=== PATIENT | female | born 1990 | race Two or more races ===

== ENCOUNTER 2017-02-19 13:32 | Inpatient (IN) | payer BC ==
[~2017-02-19] VITALS: Ht 157.5 cm; Wt 72.6 kg
[2017-02-19 15:11] VITALS: BP 112/71
[2017-02-19] MEDS ORDERED: ONDANSETRON PF 4 MG/2 ML VIAL. IV PRN ×2 (17:00→17:45)
[2017-02-19] MEDS ORDERED: IV NORMAL SALINE 1000ML BAG 1,000 ML IV SCH (17:39)
[2017-02-19] MEDS: PIPERACILLIN/TAZOBACTAM 3.375 GM in IV NORMAL SALINE 50ML 50 ML IV SCH ×2 (17:40→23:57)
[2017-02-19] MEDS: MORPHINE SULFATE 2 MG/ML DISP.SYRIN. IV PRN ×3 (17:40→23:07)
[2017-02-19] MEDS ORDERED: oxyCODONE IR 5 MG TABLET PO PRN (17:45)
[2017-02-19] MEDS ORDERED: 0.9 % SODIUM CHLORIDE 10 ML DISP.SYRIN. IV PRN (17:45)
--- NOTE | 2017-02-19 18:37 | HP ---
ADMIT DATE: 02/19/2017 CHIEF COMPLAINT: Right upper quadrant pain. HISTORY OF PRESENT ILLNESS: The patient is a 26-year-old , who presented with a 5-day history of right upper quadrant pain. She relates that this started last Wednesday and was waxing and waning during the day, got worse and worse and now has had vomiting this morning, which finally prompted her to seek medical help. She relates pain is actually worse when she takes a deep breath. It is right under her ribs in the nipple line on the right. She denies any ongoing nausea, any diarrhea. She was able to eat 3 out of the past 5 days with decreased p.o. intake. In the Emergency Room at [facility], she was found with cholecystitis and therefore referred to [facility] for surgical evaluation. PAST MEDICAL HISTORY: Nil. FAMILY HISTORY: She denies any knowledge of abdominal issues, no other family members with cholecystitis. SOCIAL HISTORY: Lives with her roommate. No toxic habits. Works as a counselor in detention. ALLERGIES: No known drug allergies. MEDICATIONS: MAR reconciled with home meds. REVIEW OF SYSTEMS: Positive for significant pain, 10/10 currently in right upper quadrant. No other issues. PHYSICAL EXAMINATION: VITAL SIGNS: Show a blood pressure of 112/71, heart rate of 76, respiratory rate at 18. She is afebrile. GENERAL: This is a well-nourished 26-year-old , alert and oriented, in moderate distress. HEENT: Shows no scleral icterus. LUNGS: Clear. HEART: Regular rate and rhythm. ABDOMEN: Has positive bowel sounds, soft, mildly distended, moderate to severe tenderness to palpation, especially in the right upper quadrant. EXTREMITIES: Show no edema. SKIN: Warm, soft and dry. LABORATORY DATA: Reviewed from [facility]. ASSESSMENT AND PLAN: The patient is a 26-year-old woman with cholecystitis. Dr. Mahajan from surgery is aware of her admission. Plans are for surgery in the morning as she received Lovenox in the ER this morning at [facility]. In the meantime, I will try and keep her comfortable with narcotics, both IV morphine as well as p.o. oxycodone are available for her. Hopefully, she will be able to get some rest overnight. She will be placed on clear liquids until midnight, at which point, she will become n.p.o. PRISCILA HAILE MD DR: [facility] JOB#: [id number] / [id number] BELIA
[2017-02-19 19:00] VITALS: BP 110/66
[2017-02-19 20:49] LABS: BASO # 0.1 x10^3/uL (0.0-0.2); BASO % 1 % (0-3); EOS % 0 % (0-3); HEMATOCRIT 37.2 % (36.0-47.0); HEMOGLOBIN 12.5 g/dL (12.0-15.5); LYMPH % 18 % (24-48); MEAN CORPUSCULAR HEMOGLOBIN 30 pg (25-35); MEAN CORPUSCULAR HGB CONC 34 g/dL (31-37); MEAN CORPUSCULAR VOLUME 88 fL (79-100); MONO % 6 % (0-9); NEUT % 75 % (31-73); PLATELET COUNT 273 x10^3/uL (140-400); RED BLOOD COUNT 4.22 x10^6/uL (3.50-5.40); RED CELL DISTRIBUTION WIDTH 14.8 % (11.5-14.5)
[2017-02-19 20:58] LABS: INR 1.1 (0.8-1.1); PROTHROMBIN TIME PATIENT 13.3 SEC (11.7-14.0)
[2017-02-19 21:07] LABS: ALBUMIN 3.5 g/dL (3.4-5.0); ALBUMIN/GLOBULIN RATIO 0.9 (1.0-1.7); CALCIUM 8.7 mg/dL (8.5-10.1); CREATININE 0.6 mg/dL (0.6-1.0); POTASSIUM 3.7 mmol/L (3.5-5.1); TOTAL BILIRUBIN 0.7 mg/dL (0.2-1.0); TOTAL PROTEIN 7.6 g/dL (6.4-8.2)
[2017-02-19 22:45] VITALS: BP 100/58
[2017-02-20] VITALS (12 sets, daily range): BP systolic 86–115; BP diastolic 44–72
[2017-02-20] MEDS ORDERED: PIPERACILLIN/TAZOBACTAM 3.375 GM in IV DEXTROSE 5% 50 ML IV SCH (04:26)
[2017-02-20] MEDS: MORPHINE SULFATE 2 MG/ML DISP.SYRIN. IV PRN ×4 (04:35→12:32)
[2017-02-20 05:48] LABS: BASO % 0 % (0-3); EOS % 1 % (0-3); HEMATOCRIT 35.5 % (36.0-47.0); HEMOGLOBIN 12.1 g/dL (12.0-15.5); LYMPH # 2.9 x10^3/uL (1.0-4.8); LYMPH % 35 % (24-48); MEAN CORPUSCULAR HEMOGLOBIN 30 pg (25-35); MEAN CORPUSCULAR HGB CONC 34 g/dL (31-37); MEAN CORPUSCULAR VOLUME 87 fL (79-100); MONO % 7 % (0-9); NEUT % 56 % (31-73); PLATELET COUNT 249 x10^3/uL (140-400); RED BLOOD COUNT 4.08 x10^6/uL (3.50-5.40); RED CELL DISTRIBUTION WIDTH 14.5 % (11.5-14.5); WHITE BLOOD COUNT 8.2 x10^3/uL (4.0-11.0)
[2017-02-20] MEDS: PIPERACILLIN/TAZOBACTAM 3.375 GM in IV DEXTROSE 5% 50 ML IV SCH ×3 (05:52→18:12)
[2017-02-20] MEDS ORDERED: SURGICEL HEMOSTAT 4X8 EACH. ONE (08:06)
[2017-02-20] MEDS ORDERED: BUPIVAC MPF-EPI 0.5%-1:200000 30 ML VIAL. ONE (08:06)
[2017-02-20] MEDS ORDERED: IOHEXOL 300 MG/ML 50 ML VIAL. ONE (08:06)
[2017-02-20] MEDS ORDERED: HYDROmorphone 2 MG/ML VIAL IV ONE (09:00)
[2017-02-20] MEDS ORDERED: IV RINGERS,LACTATED 1000ML 1,000 ML IV SCH (09:54)
[2017-02-20] MEDS ORDERED: fentaNYL PF VIAL 100 MCG/2 ML VIAL IV PRN (10:00)
[2017-02-20] MEDS ORDERED: HYDROmorphone 2 MG/ML VIAL IV PRN (10:00)
[2017-02-20] MEDS ORDERED: PROCHLORPERAZINE 10 MG/2 ML VIAL. IV PRN (10:00)
[2017-02-20] MEDS ORDERED: LIDOCAINE 1% PF 2 ML VIAL. ID PRN (10:00)
[2017-02-20] MEDS ORDERED: ONDANSETRON PF 4 MG/2 ML VIAL. IV PRN (10:00)
[2017-02-20] MEDS ORDERED: ROCURONIUM 50 MG/5 ML VIAL. ONE (10:09)
[2017-02-20] MEDS ORDERED: fentaNYL PF VIAL 100 MCG/2 ML VIAL ONE ×2 (10:09→11:59)
[2017-02-20] MEDS ORDERED: ONDANSETRON PF 4 MG/2 ML VIAL. ONE (10:11)
[2017-02-20] MEDS ORDERED: DEXAMETHASONE SOD PHOS 20 MG/5 ML VIAL. ONE (10:11)
[2017-02-20] MEDS ORDERED: PROPOFOL 20 ML IV ONE (10:11)
[2017-02-20] MEDS ORDERED: DESFLURANE 31 TO 60 MINUTES IH ONE (10:11)
[2017-02-20] MEDS ORDERED: LIDOCAINE 2% PF Vial for OR 5 ML VIAL. ONE (10:11)
--- NOTE | 2017-02-20 10:17 | PDOC2 ---
CONSULT Date of Consult Date of Consult DATE: 02/20/17 TIME: 10:14 History of Present Illness Reason for Visit: The patient is a 26 year old female who reported to the ER with abdominal pain. The pain was located in the RUQ with associated nausea. Her evaluation was suggestive of cholecystitis. Past Medical History Past Medical History denies Past Surgical History Past Surgical History denies Social History No ALCOHOL: none Current Medications Current Medications Current Medications Morphine Sulfate 2 mg PRN Q2HR PRN IV PAIN Last administered on 02/20/17 08: 12; Start 02/19/17 at 17:00 Ondansetron HCl (Zofran) 4 mg PRN Q8HRS PRN IV NAUSEA/VOMITING; Start at 17:00 Piperacillin Sod/ Tazobactam Sod 3.375 gm/Sodium Chloride 50 ml @ 100 mls/hr Q6HRS IV Last administered on 02/19/17 23:57; Start 02/19/17 at 18:00; Stop 02/20/17 at 04:26; Status DC Sodium Chloride (Normal Saline Flush) 3 ml PRN DAILY PRN IV AFTER MEDS AND BLOOD DRAWS; Start 02/19/17 at 17:45 Sodium Chloride 1,000 ml @ 100 mls/hr Q10H IV Last administered on 02/20/17 08:39; Start 02/19/17 at 17:39; Stop 02/20/17 at 03:38; Status DC Ondansetron HCl (Zofran) 4 mg PRN Q6HRS PRN IV NAUSEA/VOMITING Last administered on 02/19/17 19:59; Start 02/19/17 at 17:45 Oxycodone HCl (Roxicodone) 5 mg PRN Q3HRS PRN PO BREAKTHROUGH PAIN Last administered on 02/19/17 18:30; Start 02/19/17 at 17:45 Piperacillin Sod/ Tazobactam Sod 3.375 gm/Dextrose 50 ml @ 100 mls/hr Q6HRS IV ; Start 02/20/17 at 04:26; Stop 02/20/17 at 05:32; Status DC Piperacillin Sod/ Tazobactam Sod 3.375 gm/Dextrose 50 ml @ 100 mls/hr Q6HRS IV Last administered on 02/20/17 05:52; Start 02/20/17 at 06:00 Hydromorphone HCl (Dilaudid) 1 mg 1X ONCE IV Last administered on 02/20/17t 09:19; Start 02/20/17 at 09:00; Stop 02/20/17 at 09:01; Status DC Iohexol (Omnipaque 300 Mg/ml) 50 ml STK-MED ONCE .ROUTE ; Start 02/20/17 at 08: 06; Stop 02/20/17 at 09:06; Status DC Bupivacaine HCl/ Epinephrine Bitart (Sensorcain-Mpf Epi 0.5%-1:[id number]) 30 ml STK -MED ONCE .ROUTE ; Start 02/20/17 at 08:06; Stop 02/20/17 at 09:07; Status DC Cellulose 1 each STK-MED ONCE .ROUTE ; Start 02/20/17 at 08:06; Stop 02/20/17 at 09:07; Status DC Ondansetron HCl (Zofran) 4 mg PRN Q6HRS PRN IV NAUSEA/VOMITING; Start at 10:00; Stop 02/21/17 at 09:59 Fentanyl Citrate (Fentanyl 2ml Vial) 25 mcg PRN Q5MIN PRN IV MILD PAIN; Start 02/20/17 at 10:00; Stop 02/21/17 at 09:59 Fentanyl Citrate (Fentanyl 2ml Vial) 50 mcg PRN Q5MIN PRN IV MODERATE PAIN; Start 02/20/17 at 10:00; Stop 02/21/17 at 09:59 Morphine Sulfate 1 mg PRN Q10MIN PRN IV SEVERE PAIN; Start 02/20/17 at 10:00; Stop 02/21/17 at 09:59 Ringer's Solution 1,000 ml @ 30 mls/hr Q24H IV ; Start 02/20/17 at 09:54; Stop 02/20/17 at 21:53 Lidocaine HCl (Xylocaine-Mpf 1% Vial) 2 ml 1X PRN PRN ID IV START; Start 02/20 at 10:00; Stop 02/21/17 at 09:59 Hydromorphone HCl (Dilaudid) 0.5 mg PRN Q10MIN PRN IV SEV PAIN, Second choice; Start 02/20/17 at 10:00; Stop 02/21/17 at 09:59 Prochlorperazine Edisylate (Compazine) 5 mg PACU PRN PRN IV NAUSEA, MRX1; Start 02/20/17 at 10:00; Stop 02/21/17 at 09:59 Fentanyl Citrate (Fentanyl 2ml Vial) 100 mcg STK-MED ONCE .ROUTE ; Start at 10:09; Stop 02/20/17 at 10:10; Status DC Rocuronium [place] (Zemuron) 50 mg STK-MED ONCE .ROUTE ; Start 02/20/17 at 10: 09; Stop 02/20/17 at 10:10; Status DC Desflurane (Suprane) 30 ml STK-MED ONCE IH ; Start 02/20/17 at 10:11; Stop at 10:12; Status DC Propofol 20 ml @ As Directed STK-MED ONCE IV ; Start 02/20/17 at 10:11; Stop 02/20/17 at 10:12; Status DC Dexamethasone Sodium Phosphate (Decadron) 20 mg STK-MED ONCE .ROUTE ; Start at 10:11; Stop 02/20/17 at 10:12; Status DC Lidocaine HCl (Lidocaine Pf 2% Vial) 5 ml STK-MED ONCE .ROUTE ; Start 02/20/17 at 10:11; Stop 02/20/17 at 10:12; Status DC Ondansetron HCl (Zofran) 4 mg STK-MED ONCE .ROUTE ; Start 02/20/17 at 10:11; Stop 02/20/17 at 10:12; Status DC Active Scripts Active Reported No Known Medications Prior To Admisstion (Info) Each 1 Each Allergies Allergies: Coded Allergies: peanut (Verified Allergy, Unknown, 02/19/17) ROS Gastrointestinal: Yes Nausea, Yes Abdominal Pain Physical Exam General: Alert, Oriented X3, Cooperative HEENT: Atraumatic Lungs: Clear to auscultation Heart: Regular rate Abdomen: Soft (tender RUQ) Extremities: No clubbing, No cyanosis Skin: No rashes, No breakdown Neuro: Normal gait, Normal speech Psych/Mental Status: Mental status NL MUSCULOSKELETAL: No joint tenderness, No deformity Vitals VITALS Vital Signs Date Time Temp Pulse Resp B/P (MAP) Pulse Ox O2 Delivery O2 Flow Rate FiO2 02/20/17 09:19 18 99 Room Air 02/20/17 07:00 98.1 59 103/63 (76) 98.1 Labs Labs Laboratory Tests Test 02/19/17 19:00 02/20/17 04:45 White Blood Count 11.0 x10^3/uL (4.0-11.0) 8.2 x10^3/uL (4.0-11.0) Red Blood Count 4.22 x10^6/uL (3.50-5.40) 4.08 x10^6/uL (3.50-5.40) Hemoglobin 12.5 g/dL (12.0-15.5) 12.1 g/dL (12.0-15.5) Hematocrit 37.2 % (36.0-47.0) 35.5 % (36.0-47.0) Mean Corpuscular Volume 88 fL (79-100) 87 fL (79-100) Mean Corpuscular Hemoglobin 30 pg (25-35) 30 pg (25-35) Mean Corpuscular Hemoglobin Concent 34 g/dL (31-37) 34 g/dL (31-37) Red Cell Distribution Width 14.8 % (11.5-14.5) 14.5 % (11.5-14.5) Platelet Count 273 x10^3/uL (140-400) 249 x10^3/uL (140-400) Neutrophils (%) (Auto) 75 % (31-73) 56 % (31-73) Lymphocytes (%) (Auto) 18 % (24-48) 35 % (24-48) Monocytes (%) (Auto) 6 % (0-9) 7 % (0-9) Eosinophils (%) (Auto) 0 % (0-3) 1 % (0-3) Basophils (%) (Auto) 1 % (0-3) 0 % (0-3) Neutrophils # (Auto) 8.3 x10^3uL (1.8-7.7) 4.6 x10^3uL (1.8-7.7) Lymphocytes # (Auto) 2.0 x10^3/uL (1.0-4.8) 2.9 x10^3/uL (1.0-4.8) Monocytes # (Auto) 0.6 x10^3/uL (0.0-1.1) 0.6 x10^3/uL (0.0-1.1) Eosinophils # (Auto) 0.0 x10^3/uL (0.0-0.7) 0.1 x10^3/uL (0.0-0.7) Basophils # (Auto) 0.1 x10^3/uL (0.0-0.2) 0.0 x10^3/uL (0.0-0.2) Prothrombin Time 13.3 SEC (11.7-14.0) Prothromb Time International Ratio 1.1 (0.8-1.1) Activated Partial Thromboplast Time 33 SEC (24-38) Sodium Level 138 mmol/L (136-145) Potassium Level 3.7 mmol/L (3.5-5.1) Chloride Level 103 mmol/L (98-107) Carbon Dioxide Level 25 mmol/L (21-32) Anion Gap 10 (6-14) Blood Urea Nitrogen 8 mg/dL (7-20) Creatinine 0.6 mg/dL (0.6-1.0) Estimated GFR (Cockcroft-Gault) 119.0 BUN/Creatinine Ratio 13 (6-20) Glucose Level 94 mg/dL (70-99) Calcium Level 8.7 mg/dL (8.5-10.1) Total Bilirubin 0.7 mg/dL (0.2-1.0) Aspartate Amino Transf (AST/SGOT) 17 U/L (15-37) Alanine Aminotransferase (ALT/SGPT) 33 U/L (14-59) Alkaline Phosphatase 64 U/L (46-116) Total Protein 7.6 g/dL (6.4-8.2) Albumin 3.5 g/dL (3.4-5.0) Albumin/Globulin Ratio 0.9 (1.0-1.7) Laboratory Tests Test 02/19/17 19:00 02/20/17 04:45 White Blood Count 11.0 x10^3/uL (4.0-11.0) 8.2 x10^3/uL (4.0-11.0) Red Blood Count 4.22 x10^6/uL (3.50-5.40) 4.08 x10^6/uL (3.50-5.40) Hemoglobin 12.5 g/dL (12.0-15.5) 12.1 g/dL (12.0-15.5) Hematocrit 37.2 % (36.0-47.0) 35.5 % (36.0-47.0) Mean Corpuscular Volume 88 fL (79-100) 87 fL (79-100) Mean Corpuscular Hemoglobin 30 pg (25-35) 30 pg (25-35) Mean Corpuscular Hemoglobin Concent 34 g/dL (31-37) 34 g/dL (31-37) Red Cell Distribution Width 14.8 % (11.5-14.5) 14.5 % (11.5-14.5) Platelet Count 273 x10^3/uL (140-400) 249 x10^3/uL (140-400) Neutrophils (%) (Auto) 75 % (31-73) 56 % (31-73) Lymphocytes (%) (Auto) 18 % (24-48) 35 % (24-48) Monocytes (%) (Auto) 6 % (0-9) 7 % (0-9) Eosinophils (%) (Auto) 0 % (0-3) 1 % (0-3) Basophils (%) (Auto) 1 % (0-3) 0 % (0-3) Neutrophils # (Auto) 8.3 x10^3uL (1.8-7.7) 4.6 x10^3uL (1.8-7.7) Lymphocytes # (Auto) 2.0 x10^3/uL (1.0-4.8) 2.9 x10^3/uL (1.0-4.8) Monocytes # (Auto) 0.6 x10^3/uL (0.0-1.1) 0.6 x10^3/uL (0.0-1.1) Eosinophils # (Auto) 0.0 x10^3/uL (0.0-0.7) 0.1 x10^3/uL (0.0-0.7) Basophils # (Auto) 0.1 x10^3/uL (0.0-0.2) 0.0 x10^3/uL (0.0-0.2) Prothrombin Time 13.3 SEC (11.7-14.0) Prothromb Time International Ratio 1.1 (0.8-1.1) Activated Partial Thromboplast Time 33 SEC (24-38) Sodium Level 138 mmol/L (136-145) Potassium Level 3.7 mmol/L (3.5-5.1) Chloride Level 103 mmol/L (98-107) Carbon Dioxide Level 25 mmol/L (21-32) Anion Gap 10 (6-14) Blood Urea Nitrogen 8 mg/dL (7-20) Creatinine 0.6 mg/dL (0.6-1.0) Estimated GFR (Cockcroft-Gault) 119.0 BUN/Creatinine Ratio 13 (6-20) Glucose Level 94 mg/dL (70-99) Calcium Level 8.7 mg/dL (8.5-10.1) Total Bilirubin 0.7 mg/dL (0.2-1.0) Aspartate Amino Transf (AST/SGOT) 17 U/L (15-37) Alanine Aminotransferase (ALT/SGPT) 33 U/L (14-59) Alkaline Phosphatase 64 U/L (46-116) Total Protein 7.6 g/dL (6.4-8.2) Albumin 3.5 g/dL (3.4-5.0) Albumin/Globulin Ratio 0.9 (1.0-1.7) Assessment/Plan Assessment/Plan Calculous cholecystitis, recommend lap yazmin. The details and risks of surgery were discussed with the patient. She understands and would like to proceed. MELANY SINGH MD Feb 20, 2017 10:17
[2017-02-20] MEDS ORDERED: ESMOLOL 100 MG/10 ML VIAL. IV ONE (10:44)
[2017-02-20] MEDS ORDERED: NEOSTIGMINE 10 MG/10 ML VIAL. ONE (10:49)
[2017-02-20] MEDS ORDERED: GLYCOPYRROLATE 1 MG/5 ML VIAL. ONE (10:50)
[2017-02-20] MEDS ORDERED: KETOROLAC 30 MG/ML INJ FOR OR. INJ ONE (11:07)
--- NOTE | 2017-02-20 11:17 | RAD ---
Intraoperative cholangiogram 02/20/2017 Clinical history: Laparoscopic cholecystectomy. Fluoroscopic assistance was provided during an intraoperative cholangiogram. The total fluoroscopic time is listed as 0.35 seconds. 2 digital spot radiographs of the right upper quadrant of the abdomen were obtained. These radiographs demonstrate contrast opacifying the cystic duct remnant, common hepatic duct, left and right hepatic ducts and their branches and the common bile duct. These ducts are normal in caliber. No filling defect is seen. Free spillage of contrast into the duodenum is noted. Impression: Negative study.
--- NOTE | 2017-02-20 11:47 | PDOC4 ---
Operative Note Operative Note Operative Note: Preoperative Diagnosis: Calculous cholecystitis Postoperative Diagnosis: Same Procedure: Laparoscopic cholecystectomy with intraoperative cholangiogram Surgeons: Keyshawn Anesthesia: GenIlana Estimated Blood Loss: 10 mL Specimen: Gallbladder to pathology Drains: None Complications: None Indications: The patient is a 26-year-old female who reported through the emergency department with right upper quadrant pain. Her evaluation appears consistent with calculus cholecystitis. Surgical treatment was offered by means of a laparoscopic cholecystectomy. The risks of surgery were discussed which include bleeding, infection, bile duct injury, bile leak, pain, the potential for additional surgeries or procedures. The patient understands and would like to proceed. Description: The patient was taken to the operating room and laid supine on the operating table. General anesthesia was performed. The abdomen was prepped with ChloraPrep and draped in a standard surgical fashion. A small infraumbilical incision was made with a scalpel. The Veress needle was then inserted and a pneumoperitoneum was then created. A 5 mm trocar was then inserted and the laparoscope was introduced. In the upper midabdomen a 5 mm trocar was inserted and in the right upper quadrant two 2.3 mm mini lap graspers were inserted. The gallbladder was retracted cephalad. The cystic duct was dissected free from surrounding tissues. One clip was placed on the duct near the gallbladder junction. An opening was made in the duct and a cholangiocatheter placed within and secured with a clip. Using contrast dye and fluoroscopy an intraoperative cholangiogram was performed that appeared unremarkable. The clip and catheter were then withdrawn. Three clips were placed on the cystic duct and it was divided. The cystic artery was then identified, dissected free, doubly clipped and divided as well. The gallbladder was then mobilized away from the liver with cautery. The umbilical 5 millimeter trocar was exchanged for an 11 millimeter trocar. The gallbladder was then placed in an endoscopic bag and extracted at the umbilical trocar site. The fascia there was closed with an 0 Vicryl suture. All blood and irrigation fluid was suctioned and hemostasis was good. The remaining ports were removed and the pneumoperitoneum was relieved. The skin incisions were injected with half percent Marcaine with epinephrine, and all were closed using 4-0 Monocryl suture. Steri-Strips and dressings were then applied. The patient tolerated the procedure well and was sent to the recovery room in stable condition. At the end of the case all counts were correct. MELANY SINGH MD Feb 20, 2017 11:46
[2017-02-20] MEDS ORDERED: oxyCODONE/APAP 5/325 1 TAB TABLET PO PRN (12:00)
[2017-02-20] MEDS: fentaNYL PF VIAL 100 MCG/2 ML VIAL IV PRN ×2 (12:02→12:13)
[2017-02-20] MEDS ORDERED: MORPHINE SULFATE 2 MG/ML DISP.SYRIN. ONE (12:20)
--- NOTE | 2017-02-20 14:40 | PDOC ---
PROGRESS NOTES Chief Complaint Chief Complaint acute abdominal pain acute cholecystitis. History of Present Illness History of Present Illness Dr. Mahajan performed surg this AM, in afternoon, still severe pain cont current ADAT, clear liquid now try PO pain meds, will give IV X1 now discussed with RN Vitals Vitals Vital Signs Date Time Temp Pulse Resp B/P (MAP) Pulse Ox O2 Delivery O2 Flow Rate FiO2 02/20/17 13:32 18 Nasal Cannula 2.0 02/20/17 12:19 97.0 55 99/62 100 97.0 Physical Exam General: Alert, Oriented X3, Cooperative Heart: Regular rate Lungs: Clear Abdomen: Soft (tender RUQ) Extremities: No clubbing, No cyanosis Skin: No rashes, No breakdown Labs LABS Laboratory Tests Test 02/19/17 19:00 02/20/17 04:45 White Blood Count 11.0 x10^3/uL (4.0-11.0) 8.2 x10^3/uL (4.0-11.0) Red Blood Count 4.22 x10^6/uL (3.50-5.40) 4.08 x10^6/uL (3.50-5.40) Hemoglobin 12.5 g/dL (12.0-15.5) 12.1 g/dL (12.0-15.5) Hematocrit 37.2 % (36.0-47.0) 35.5 % (36.0-47.0) Mean Corpuscular Volume 88 fL (79-100) 87 fL (79-100) Mean Corpuscular Hemoglobin 30 pg (25-35) 30 pg (25-35) Mean Corpuscular Hemoglobin Concent 34 g/dL (31-37) 34 g/dL (31-37) Red Cell Distribution Width 14.8 % (11.5-14.5) 14.5 % (11.5-14.5) Platelet Count 273 x10^3/uL (140-400) 249 x10^3/uL (140-400) Neutrophils (%) (Auto) 75 % (31-73) 56 % (31-73) Lymphocytes (%) (Auto) 18 % (24-48) 35 % (24-48) Monocytes (%) (Auto) 6 % (0-9) 7 % (0-9) Eosinophils (%) (Auto) 0 % (0-3) 1 % (0-3) Basophils (%) (Auto) 1 % (0-3) 0 % (0-3) Neutrophils # (Auto) 8.3 x10^3uL (1.8-7.7) 4.6 x10^3uL (1.8-7.7) Lymphocytes # (Auto) 2.0 x10^3/uL (1.0-4.8) 2.9 x10^3/uL (1.0-4.8) Monocytes # (Auto) 0.6 x10^3/uL (0.0-1.1) 0.6 x10^3/uL (0.0-1.1) Eosinophils # (Auto) 0.0 x10^3/uL (0.0-0.7) 0.1 x10^3/uL (0.0-0.7) Basophils # (Auto) 0.1 x10^3/uL (0.0-0.2) 0.0 x10^3/uL (0.0-0.2) Prothrombin Time 13.3 SEC (11.7-14.0) Prothromb Time International Ratio 1.1 (0.8-1.1) Activated Partial Thromboplast Time 33 SEC (24-38) Sodium Level 138 mmol/L (136-145) Potassium Level 3.7 mmol/L (3.5-5.1) Chloride Level 103 mmol/L (98-107) Carbon Dioxide Level 25 mmol/L (21-32) Anion Gap 10 (6-14) Blood Urea Nitrogen 8 mg/dL (7-20) Creatinine 0.6 mg/dL (0.6-1.0) Estimated GFR (Cockcroft-Gault) 119.0 BUN/Creatinine Ratio 13 (6-20) Glucose Level 94 mg/dL (70-99) Calcium Level 8.7 mg/dL (8.5-10.1) Total Bilirubin 0.7 mg/dL (0.2-1.0) Aspartate Amino Transf (AST/SGOT) 17 U/L (15-37) Alanine Aminotransferase (ALT/SGPT) 33 U/L (14-59) Alkaline Phosphatase 64 U/L (46-116) Total Protein 7.6 g/dL (6.4-8.2) Albumin 3.5 g/dL (3.4-5.0) Albumin/Globulin Ratio 0.9 (1.0-1.7) Review of Systems Review of Systems pain and nausea Comment Review of Relevant I have reviewed the following items martin (where applicable) has been applied. Labs Laboratory Tests Test 02/19/17 19:00 02/20/17 04:45 White Blood Count 11.0 x10^3/uL (4.0-11.0) 8.2 x10^3/uL (4.0-11.0) Red Blood Count 4.22 x10^6/uL (3.50-5.40) 4.08 x10^6/uL (3.50-5.40) Hemoglobin 12.5 g/dL (12.0-15.5) 12.1 g/dL (12.0-15.5) Hematocrit 37.2 % (36.0-47.0) 35.5 % (36.0-47.0) Mean Corpuscular Volume 88 fL (79-100) 87 fL (79-100) Mean Corpuscular Hemoglobin 30 pg (25-35) 30 pg (25-35) Mean Corpuscular Hemoglobin Concent 34 g/dL (31-37) 34 g/dL (31-37) Red Cell Distribution Width 14.8 % (11.5-14.5) 14.5 % (11.5-14.5) Platelet Count 273 x10^3/uL (140-400) 249 x10^3/uL (140-400) Neutrophils (%) (Auto) 75 % (31-73) 56 % (31-73) Lymphocytes (%) (Auto) 18 % (24-48) 35 % (24-48) Monocytes (%) (Auto) 6 % (0-9) 7 % (0-9) Eosinophils (%) (Auto) 0 % (0-3) 1 % (0-3) Basophils (%) (Auto) 1 % (0-3) 0 % (0-3) Neutrophils # (Auto) 8.3 x10^3uL (1.8-7.7) 4.6 x10^3uL (1.8-7.7) Lymphocytes # (Auto) 2.0 x10^3/uL (1.0-4.8) 2.9 x10^3/uL (1.0-4.8) Monocytes # (Auto) 0.6 x10^3/uL (0.0-1.1) 0.6 x10^3/uL (0.0-1.1) Eosinophils # (Auto) 0.0 x10^3/uL (0.0-0.7) 0.1 x10^3/uL (0.0-0.7) Basophils # (Auto) 0.1 x10^3/uL (0.0-0.2) 0.0 x10^3/uL (0.0-0.2) Prothrombin Time 13.3 SEC (11.7-14.0) Prothromb Time International Ratio 1.1 (0.8-1.1) Activated Partial Thromboplast Time 33 SEC (24-38) Sodium Level 138 mmol/L (136-145) Potassium Level 3.7 mmol/L (3.5-5.1) Chloride Level 103 mmol/L (98-107) Carbon Dioxide Level 25 mmol/L (21-32) Anion Gap 10 (6-14) Blood Urea Nitrogen 8 mg/dL (7-20) Creatinine 0.6 mg/dL (0.6-1.0) Estimated GFR (Cockcroft-Gault) 119.0 BUN/Creatinine Ratio 13 (6-20) Glucose Level 94 mg/dL (70-99) Calcium Level 8.7 mg/dL (8.5-10.1) Total Bilirubin 0.7 mg/dL (0.2-1.0) Aspartate Amino Transf (AST/SGOT) 17 U/L (15-37) Alanine Aminotransferase (ALT/SGPT) 33 U/L (14-59) Alkaline Phosphatase 64 U/L (46-116) Total Protein 7.6 g/dL (6.4-8.2) Albumin 3.5 g/dL (3.4-5.0) Albumin/Globulin Ratio 0.9 (1.0-1.7) Laboratory Tests Test 02/19/17 19:00 02/20/17 04:45 White Blood Count 11.0 x10^3/uL (4.0-11.0) 8.2 x10^3/uL (4.0-11.0) Red Blood Count 4.22 x10^6/uL (3.50-5.40) 4.08 x10^6/uL (3.50-5.40) Hemoglobin 12.5 g/dL (12.0-15.5) 12.1 g/dL (12.0-15.5) Hematocrit 37.2 % (36.0-47.0) 35.5 % (36.0-47.0) Mean Corpuscular Volume 88 fL (79-100) 87 fL (79-100) Mean Corpuscular Hemoglobin 30 pg (25-35) 30 pg (25-35) Mean Corpuscular Hemoglobin Concent 34 g/dL (31-37) 34 g/dL (31-37) Red Cell Distribution Width 14.8 % (11.5-14.5) 14.5 % (11.5-14.5) Platelet Count 273 x10^3/uL (140-400) 249 x10^3/uL (140-400) Neutrophils (%) (Auto) 75 % (31-73) 56 % (31-73) Lymphocytes (%) (Auto) 18 % (24-48) 35 % (24-48) Monocytes (%) (Auto) 6 % (0-9) 7 % (0-9) Eosinophils (%) (Auto) 0 % (0-3) 1 % (0-3) Basophils (%) (Auto) 1 % (0-3) 0 % (0-3) Neutrophils # (Auto) 8.3 x10^3uL (1.8-7.7) 4.6 x10^3uL (1.8-7.7) Lymphocytes # (Auto) 2.0 x10^3/uL (1.0-4.8) 2.9 x10^3/uL (1.0-4.8) Monocytes # (Auto) 0.6 x10^3/uL (0.0-1.1) 0.6 x10^3/uL (0.0-1.1) Eosinophils # (Auto) 0.0 x10^3/uL (0.0-0.7) 0.1 x10^3/uL (0.0-0.7) Basophils # (Auto) 0.1 x10^3/uL (0.0-0.2) 0.0 x10^3/uL (0.0-0.2) Prothrombin Time 13.3 SEC (11.7-14.0) Prothromb Time International Ratio 1.1 (0.8-1.1) Activated Partial Thromboplast Time 33 SEC (24-38) Sodium Level 138 mmol/L (136-145) Potassium Level 3.7 mmol/L (3.5-5.1) Chloride Level 103 mmol/L (98-107) Carbon Dioxide Level 25 mmol/L (21-32) Anion Gap 10 (6-14) Blood Urea Nitrogen 8 mg/dL (7-20) Creatinine 0.6 mg/dL (0.6-1.0) Estimated GFR (Cockcroft-Gault) 119.0 BUN/Creatinine Ratio 13 (6-20) Glucose Level 94 mg/dL (70-99) Calcium Level 8.7 mg/dL (8.5-10.1) Total Bilirubin 0.7 mg/dL (0.2-1.0) Aspartate Amino Transf (AST/SGOT) 17 U/L (15-37) Alanine Aminotransferase (ALT/SGPT) 33 U/L (14-59) Alkaline Phosphatase 64 U/L (46-116) Total Protein 7.6 g/dL (6.4-8.2) Albumin 3.5 g/dL (3.4-5.0) Albumin/Globulin Ratio 0.9 (1.0-1.7) Medications Current Medications Morphine Sulfate 2 mg PRN Q2HR PRN IV PAIN Last administered on 02/20/17 08: 12; Start 02/19/17 at 17:00; Stop 02/20/17 at 14:38; Status DC Ondansetron HCl (Zofran) 4 mg PRN Q8HRS PRN IV NAUSEA/VOMITING; Start at 17:00; Stop 02/20/17 at 11:24; Status DC Piperacillin Sod/ Tazobactam Sod 3.375 gm/Sodium Chloride 50 ml @ 100 mls/hr Q6HRS IV Last administered on 02/19/17 23:57; Start 02/19/17 at 18:00; Stop 02/20/17 at 04:26; Status DC Sodium Chloride (Normal Saline Flush) 3 ml PRN DAILY PRN IV AFTER MEDS AND BLOOD DRAWS; Start 02/19/17 at 17:45 Sodium Chloride 1,000 ml @ 100 mls/hr Q10H IV Last administered on 02/20/17 08:39; Start 02/19/17 at 17:39; Stop 02/20/17 at 03:38; Status DC Ondansetron HCl (Zofran) 4 mg PRN Q6HRS PRN IV NAUSEA/VOMITING Last administered on 02/19/17 19:59; Start 02/19/17 at 17:45 Oxycodone HCl (Roxicodone) 5 mg PRN Q3HRS PRN PO BREAKTHROUGH PAIN Last administered on 02/19/17 18:30; Start 02/19/17 at 17:45 Piperacillin Sod/ Tazobactam Sod 3.375 gm/Dextrose 50 ml @ 100 mls/hr Q6HRS IV ; Start 02/20/17 at 04:26; Stop 02/20/17 at 05:32; Status DC Piperacillin Sod/ Tazobactam Sod 3.375 gm/Dextrose 50 ml @ 100 mls/hr Q6HRS IV Last administered on 02/20/17 12:17; Start 02/20/17 at 06:00 Hydromorphone HCl (Dilaudid) 1 mg 1X ONCE IV Last administered on 02/20/17 09:19; Start 02/20/17 at 09:00; Stop 02/20/17 at 09:01; Status DC Iohexol (Omnipaque 300 Mg/ml) 50 ml STK-MED ONCE .ROUTE Last administered on 10:39; Start 02/20/17 at 08:06; Stop 02/20/17 at 09:06; Status DC Bupivacaine HCl/ Epinephrine Bitart (Sensorcain-Mpf Epi 0.5%-1:135029) 30 ml STK -MED ONCE .ROUTE Last administered on 02/20/17 10:39; Start 02/20/17 at 08: 06; Stop 02/20/17 at 09:07; Status DC Cellulose 1 each STK-MED ONCE .ROUTE ; Start 02/20/17 at 08:06; Stop 02/20/17 at 09:07; Status DC Ondansetron HCl (Zofran) 4 mg PRN Q6HRS PRN IV NAUSEA/VOMITING; Start at 10:00; Stop 02/21/17 at 09:59 Fentanyl Citrate (Fentanyl 2ml Vial) 25 mcg PRN Q5MIN PRN IV MILD PAIN; Start 02/20/17 at 10:00; Stop 02/21/17 at 09:59 Fentanyl Citrate (Fentanyl 2ml Vial) 50 mcg PRN Q5MIN PRN IV MODERATE PAIN Last administered on 02/20/17 12:13; Start 02/20/17 at 10:00; Stop 02/21/17 at 09:59 Morphine Sulfate 1 mg PRN Q10MIN PRN IV SEVERE PAIN Last administered on 12:32; Start 02/20/17 at 10:00; Stop 02/20/17 at 14:38; Status DC Ringer's Solution 1,000 ml @ 30 mls/hr Q24H IV ; Start 02/20/17 at 09:54; Stop 02/20/17 at 21:53 Lidocaine HCl (Xylocaine-Mpf 1% Vial) 2 ml 1X PRN PRN ID IV START; Start 02/20 at 10:00; Stop 02/21/17 at 09:59 Hydromorphone HCl (Dilaudid) 0.5 mg PRN Q10MIN PRN IV SEV PAIN, Second choice; Start 02/20/17 at 10:00; Stop 02/21/17 at 09:59 Prochlorperazine Edisylate (Compazine) 5 mg PACU PRN PRN IV NAUSEA, MRX1 Last administered on 02/20/17 11:50; Start 02/20/17 at 10:00; Stop 02/21/17 at 09 :59 Fentanyl Citrate (Fentanyl 2ml Vial) 100 mcg STK-MED ONCE .ROUTE ; Start at 10:09; Stop 02/20/17 at 10:10; Status DC Rocuronium [place] (Zemuron) 50 mg STK-MED ONCE .ROUTE ; Start 02/20/17 at 10: 09; Stop 02/20/17 at 10:10; Status DC Desflurane (Suprane) 30 ml STK-MED ONCE IH ; Start 02/20/17 at 10:11; Stop at 10:12; Status DC Propofol 20 ml @ As Directed STK-MED ONCE IV ; Start 02/20/17 at 10:11; Stop 02/20/17 at 10:12; Status DC Dexamethasone Sodium Phosphate (Decadron) 20 mg STK-MED ONCE .ROUTE ; Start at 10:11; Stop 02/20/17 at 10:12; Status DC Lidocaine HCl (Lidocaine Pf 2% Vial) 5 ml STK-MED ONCE .ROUTE ; Start 02/20/17 at 10:11; Stop 02/20/17 at 10:12; Status DC Ondansetron HCl (Zofran) 4 mg STK-MED ONCE .ROUTE ; Start 02/20/17 at 10:11; Stop 02/20/17 at 10:12; Status DC Esmolol HCl (Brevibloc) 100 mg STK-MED ONCE IV ; Start 02/20/17 at 10:44; Stop 02/20/17 at 10:45; Status DC Neostigmine Methylsulfate (Bloxiverz) 10 mg STK-MED ONCE .ROUTE ; Start at 10:49; Stop 02/20/17 at 10:50; Status DC Glycopyrrolate (Robinul) 1 mg STK-MED ONCE .ROUTE ; Start 02/20/17 at 10:50; Stop 02/20/17 at 10:51; Status DC Ketorolac Tromethamine (Toradol For Or Only) 30 mg STK-MED ONCE INJ ; Start at 11:07; Stop 02/20/17 at 11:08; Status DC Oxycodone/ Acetaminophen (Percocet 5/325) 1 tab PRN Q4HRS PRN PO MODERATE PAIN ; Start 02/20/17 at 12:00 Oxycodone/ Acetaminophen (Percocet 5/325) 2 tab PRN Q4HRS PRN PO SEVERE PAIN; Start 02/20/17 at 12:00 Fentanyl Citrate (Fentanyl 2ml Vial) 100 mcg STK-MED ONCE .ROUTE ; Start at 11:59; Stop 02/20/17 at 12:00; Status DC Morphine Sulfate 2 mg STK-MED ONCE .ROUTE ; Start 02/20/17 at 12:20; Stop at 12:21; Status DC Active Scripts Active Reported No Known Medications Prior To Admisstion (Info) Each 1 Each Vitals/I & O Vital Sign - Last 24 Hours 02/19/17 02/19/17 02/19/17 02/19/17 15:00 15:11 17:40 18:30 Temp 97.6 97.6 Pulse 76 Resp 18 18 B/P (MAP) 112/71 (85) Pulse Ox 99 O2 Delivery Room Air Room Air Room Air Room Air 02/19/17 02/19/17 02/19/17 02/19/17 19:00 19:30 19:50 19:54 Temp 98.4 98.4 Pulse 70 Resp 17 18 18 B/P (MAP) 110/66 (81) Pulse Ox 95 O2 Delivery Room Air Room Air Room Air Room Air 02/19/17 02/19/17 02/20/17 02/20/17 22:45 23:07 03:00 04:35 Temp 98.3 98.2 98.3 98.2 Pulse 64 56 Resp 16 18 16 18 B/P (MAP) 100/58 (72) 91/53 (66) Pulse Ox 98 99 O2 Delivery Room Air Room Air Room Air Room Air 02/20/17 02/20/17 02/20/17 02/20/17 07:00 07:50 08:12 09:19 Temp 98.1 98.1 Pulse 59 Resp 16 18 18 B/P (MAP) 103/63 (76) Pulse Ox 100 99 99 O2 Delivery Room Air Room Air Room Air Room Air 02/20/17 02/20/17 02/20/17 02/20/17 11:34 11:47 11:49 12:04 Temp 97.7 97.0 97.7 97.0 Pulse 64 55 54 Resp 18 16 16 B/P (MAP) 119/56 100/59 97/49 Pulse Ox 100 100 100 O2 Delivery Nasal Cannula Nasal Cannula Nasal Cannula Nasal Cannula O2 Flow Rate 2 2 2 2 02/20/17 02/20/17 02/20/17 02/20/17 12:19 12:50 13:31 13:32 Temp 97.0 97.0 Pulse 55 Resp 16 18 18 B/P (MAP) 99/62 Pulse Ox 100 O2 Delivery Nasal Cannula Room Air Nasal Cannula Nasal Cannula O2 Flow Rate 2 2.0 2.0 02/20/17 13:32 Resp 18 O2 Delivery Nasal Cannula O2 Flow Rate 2.0 Intake and Output 02/20/17 02/20/17 02/21/17 15:00 23:00 07:00 Output Total 100 ml Balance -100 ml GABY CORBETT MD Feb 20, 2017 14:40
[2017-02-20] MEDS ORDERED: fentaNYL PF VIAL 100 MCG/2 ML VIAL IV ONE (14:45)
[2017-02-20] MEDS ORDERED: MORPHINE SULFATE 4 MG/ML DISP.SYRIN. IV PRN (14:45)
[2017-02-20] MEDS: oxyCODONE/APAP 5/325 1 TAB TABLET PO PRN (18:18)
[2017-02-21] MEDS: oxyCODONE/APAP 5/325 1 TAB TABLET PO PRN ×3 (00:16→11:33)
[2017-02-21] MEDS: PIPERACILLIN/TAZOBACTAM 3.375 GM in IV DEXTROSE 5% 50 ML IV SCH ×3 (00:17→11:34)
[2017-02-21 03:00] VITALS: BP 98/53
[2017-02-21 07:00] VITALS: BP 109/70
[2017-02-21] MEDS ORDERED: DOCU-109 PO (10:38)
[2017-02-21] MEDS ORDERED: OXYC1TAB7 PO (10:38)
--- NOTE | 2017-02-21 10:42 | PDOC3 ---
Discharge Summary Visit Information Date of Admission: Feb 19, 2017 Date of Discharge: Feb 21, 2017 Admitting Diagnosis: abdominal pain Final Diagnosis acute abdominal pain acute cholecystitis. Brief Hospital Course Allergies Allergies Coded Allergies Type Severity Reaction Last Updated Verified peanut Allergy Unknown 02/19/17 Yes Vital Signs Vital Signs Date Time Temp Pulse Resp B/P (MAP) Pulse Ox O2 Delivery O2 Flow Rate FiO2 02/21/17 07:30 Room Air 02/21/17 07:25 18 98 02/21/17 03:00 98.8 57 98/53 (68) 98.8 02/20/17 18:18 2.0 Lab Results Laboratory Tests Test 02/19/17 19:00 02/20/17 04:45 White Blood Count 11.0 x10^3/uL (4.0-11.0) 8.2 x10^3/uL (4.0-11.0) Red Blood Count 4.22 x10^6/uL (3.50-5.40) 4.08 x10^6/uL (3.50-5.40) Hemoglobin 12.5 g/dL (12.0-15.5) 12.1 g/dL (12.0-15.5) Hematocrit 37.2 % (36.0-47.0) 35.5 % (36.0-47.0) Mean Corpuscular Volume 88 fL (79-100) 87 fL (79-100) Mean Corpuscular Hemoglobin 30 pg (25-35) 30 pg (25-35) Mean Corpuscular Hemoglobin Concent 34 g/dL (31-37) 34 g/dL (31-37) Red Cell Distribution Width 14.8 % (11.5-14.5) 14.5 % (11.5-14.5) Platelet Count 273 x10^3/uL (140-400) 249 x10^3/uL (140-400) Neutrophils (%) (Auto) 75 % (31-73) 56 % (31-73) Lymphocytes (%) (Auto) 18 % (24-48) 35 % (24-48) Monocytes (%) (Auto) 6 % (0-9) 7 % (0-9) Eosinophils (%) (Auto) 0 % (0-3) 1 % (0-3) Basophils (%) (Auto) 1 % (0-3) 0 % (0-3) Neutrophils # (Auto) 8.3 x10^3uL (1.8-7.7) 4.6 x10^3uL (1.8-7.7) Lymphocytes # (Auto) 2.0 x10^3/uL (1.0-4.8) 2.9 x10^3/uL (1.0-4.8) Monocytes # (Auto) 0.6 x10^3/uL (0.0-1.1) 0.6 x10^3/uL (0.0-1.1) Eosinophils # (Auto) 0.0 x10^3/uL (0.0-0.7) 0.1 x10^3/uL (0.0-0.7) Basophils # (Auto) 0.1 x10^3/uL (0.0-0.2) 0.0 x10^3/uL (0.0-0.2) Prothrombin Time 13.3 SEC (11.7-14.0) Prothromb Time International Ratio 1.1 (0.8-1.1) Activated Partial Thromboplast Time 33 SEC (24-38) Sodium Level 138 mmol/L (136-145) Potassium Level 3.7 mmol/L (3.5-5.1) Chloride Level 103 mmol/L (98-107) Carbon Dioxide Level 25 mmol/L (21-32) Anion Gap 10 (6-14) Blood Urea Nitrogen 8 mg/dL (7-20) Creatinine 0.6 mg/dL (0.6-1.0) Estimated GFR (Cockcroft-Gault) 119.0 BUN/Creatinine Ratio 13 (6-20) Glucose Level 94 mg/dL (70-99) Calcium Level 8.7 mg/dL (8.5-10.1) Total Bilirubin 0.7 mg/dL (0.2-1.0) Aspartate Amino Transf (AST/SGOT) 17 U/L (15-37) Alanine Aminotransferase (ALT/SGPT) 33 U/L (14-59) Alkaline Phosphatase 64 U/L (46-116) Total Protein 7.6 g/dL (6.4-8.2) Albumin 3.5 g/dL (3.4-5.0) Albumin/Globulin Ratio 0.9 (1.0-1.7) Brief Hospital Course Ms. Nevarez is a 26 old female, admit acute abd pain Dr. Mahajan performed surg 02/20, had marked post-op pain try PO pain meds, DC home Discharge Information Condition at Discharge: Improved Follow Up: Weeks Disposition/Orders: D/C to Home Scheduled PRN Oxycodone Hcl/Acetaminophen (Oxycodone-Acetaminophen 5-325), 1 TAB PO PRN Q4HRS PRN for MODERATE PAIN Miscellaneous Medications Info (No Known Medications Prior To Admisstion), 1 EACH MC, (Reported) Patient Instructions Patient Instructions > 30 min GABY CORBETT MD Feb 21, 2017 10:42
--- NOTE | 2017-02-21 10:59 | PDOC ---
PROGRESS NOTES Subjective Subjective doing well, ready to go home Objective Objective Vital Signs Date Time Temp Pulse Resp B/P (MAP) Pulse Ox O2 Delivery O2 Flow Rate FiO2 02/21/17 07:30 Room Air 02/21/17 07:25 18 98 02/21/17 03:00 98.8 57 98/53 (68) 98.8 02/20/17 18:18 2.0 Physical Exam Abdomen: Soft Plan Plan of Care ok to discharge Comment Review of Relevant I have reviewed the following items martin (where applicable) has been applied. Labs Laboratory Tests Test 02/19/17 19:00 02/20/17 04:45 White Blood Count 11.0 x10^3/uL (4.0-11.0) 8.2 x10^3/uL (4.0-11.0) Red Blood Count 4.22 x10^6/uL (3.50-5.40) 4.08 x10^6/uL (3.50-5.40) Hemoglobin 12.5 g/dL (12.0-15.5) 12.1 g/dL (12.0-15.5) Hematocrit 37.2 % (36.0-47.0) 35.5 % (36.0-47.0) Mean Corpuscular Volume 88 fL (79-100) 87 fL (79-100) Mean Corpuscular Hemoglobin 30 pg (25-35) 30 pg (25-35) Mean Corpuscular Hemoglobin Concent 34 g/dL (31-37) 34 g/dL (31-37) Red Cell Distribution Width 14.8 % (11.5-14.5) 14.5 % (11.5-14.5) Platelet Count 273 x10^3/uL (140-400) 249 x10^3/uL (140-400) Neutrophils (%) (Auto) 75 % (31-73) 56 % (31-73) Lymphocytes (%) (Auto) 18 % (24-48) 35 % (24-48) Monocytes (%) (Auto) 6 % (0-9) 7 % (0-9) Eosinophils (%) (Auto) 0 % (0-3) 1 % (0-3) Basophils (%) (Auto) 1 % (0-3) 0 % (0-3) Neutrophils # (Auto) 8.3 x10^3uL (1.8-7.7) 4.6 x10^3uL (1.8-7.7) Lymphocytes # (Auto) 2.0 x10^3/uL (1.0-4.8) 2.9 x10^3/uL (1.0-4.8) Monocytes # (Auto) 0.6 x10^3/uL (0.0-1.1) 0.6 x10^3/uL (0.0-1.1) Eosinophils # (Auto) 0.0 x10^3/uL (0.0-0.7) 0.1 x10^3/uL (0.0-0.7) Basophils # (Auto) 0.1 x10^3/uL (0.0-0.2) 0.0 x10^3/uL (0.0-0.2) Prothrombin Time 13.3 SEC (11.7-14.0) Prothromb Time International Ratio 1.1 (0.8-1.1) Activated Partial Thromboplast Time 33 SEC (24-38) Sodium Level 138 mmol/L (136-145) Potassium Level 3.7 mmol/L (3.5-5.1) Chloride Level 103 mmol/L (98-107) Carbon Dioxide Level 25 mmol/L (21-32) Anion Gap 10 (6-14) Blood Urea Nitrogen 8 mg/dL (7-20) Creatinine 0.6 mg/dL (0.6-1.0) Estimated GFR (Cockcroft-Gault) 119.0 BUN/Creatinine Ratio 13 (6-20) Glucose Level 94 mg/dL (70-99) Calcium Level 8.7 mg/dL (8.5-10.1) Total Bilirubin 0.7 mg/dL (0.2-1.0) Aspartate Amino Transf (AST/SGOT) 17 U/L (15-37) Alanine Aminotransferase (ALT/SGPT) 33 U/L (14-59) Alkaline Phosphatase 64 U/L (46-116) Total Protein 7.6 g/dL (6.4-8.2) Albumin 3.5 g/dL (3.4-5.0) Albumin/Globulin Ratio 0.9 (1.0-1.7) Microbiology 02/19/17 Blood Culture - Preliminary, Resulted NO GROWTH AFTER 1 DAY Medications Current Medications Morphine Sulfate 2 mg PRN Q2HR PRN IV PAIN Last administered on 02/20/17 08: 12; Start 02/19/17 at 17:00; Stop 02/20/17 at 14:38; Status DC Ondansetron HCl (Zofran) 4 mg PRN Q8HRS PRN IV NAUSEA/VOMITING; Start at 17:00; Stop 02/20/17 at 11:24; Status DC Piperacillin Sod/ Tazobactam Sod 3.375 gm/Sodium Chloride 50 ml @ 100 mls/hr Q6HRS IV Last administered on 02/19/17 23:57; Start 02/19/17 at 18:00; Stop 02/20/17 at 04:26; Status DC Sodium Chloride (Normal Saline Flush) 3 ml PRN DAILY PRN IV AFTER MEDS AND BLOOD DRAWS; Start 02/19/17 at 17:45 Sodium Chloride 1,000 ml @ 100 mls/hr Q10H IV Last administered on 02/20/17 08:39; Start 02/19/17 at 17:39; Stop 02/20/17 at 03:38; Status DC Ondansetron HCl (Zofran) 4 mg PRN Q6HRS PRN IV NAUSEA/VOMITING Last administered on 02/19/17 19:59; Start 02/19/17 at 17:45 Oxycodone HCl (Roxicodone) 5 mg PRN Q3HRS PRN PO BREAKTHROUGH PAIN Last administered on 02/19/17 18:30; Start 02/19/17 at 17:45 Piperacillin Sod/ Tazobactam Sod 3.375 gm/Dextrose 50 ml @ 100 mls/hr Q6HRS IV ; Start 02/20/17 at 04:26; Stop 02/20/17 at 05:32; Status DC Piperacillin Sod/ Tazobactam Sod 3.375 gm/Dextrose 50 ml @ 100 mls/hr Q6HRS IV Last administered on 02/21/17 06:24; Start 02/20/17 at 06:00 Hydromorphone HCl (Dilaudid) 1 mg 1X ONCE IV Last administered on 02/20/17 09:19; Start 02/20/17 at 09:00; Stop 02/20/17 at 09:01; Status DC Iohexol (Omnipaque 300 Mg/ml) 50 ml STK-MED ONCE .ROUTE Last administered on 10:39; Start 02/20/17 at 08:06; Stop 02/20/17 at 09:06; Status DC Bupivacaine HCl/ Epinephrine Bitart (Sensorcain-Mpf Epi 0.5%-[id number]) 30 ml STK -MED ONCE .ROUTE Last administered on 02/20/17 10:39; Start 02/20/17 at 08: 06; Stop 02/20/17 at 09:07; Status DC Cellulose 1 each STK-MED ONCE .ROUTE ; Start 02/20/17 at 08:06; Stop 02/20/17 at 09:07; Status DC Ondansetron HCl (Zofran) 4 mg PRN Q6HRS PRN IV NAUSEA/VOMITING; Start at 10:00; Stop 02/21/17 at 09:59; Status DC Fentanyl Citrate (Fentanyl 2ml Vial) 25 mcg PRN Q5MIN PRN IV MILD PAIN; Start 02/20/17 at 10:00; Stop 02/20/17 at 14:38; Status DC Fentanyl Citrate (Fentanyl 2ml Vial) 50 mcg PRN Q5MIN PRN IV MODERATE PAIN Last administered on 02/20/17 12:13; Start 02/20/17 at 10:00; Stop 02/20/17 at 14:38; Status DC Morphine Sulfate 1 mg PRN Q10MIN PRN IV SEVERE PAIN Last administered on 12:32; Start 02/20/17 at 10:00; Stop 02/20/17 at 14:38; Status DC Ringer's Solution 1,000 ml @ 30 mls/hr Q24H IV ; Start 02/20/17 at 09:54; Stop 02/20/17 at 21:53; Status DC Lidocaine HCl (Xylocaine-Mpf 1% Vial) 2 ml 1X PRN PRN ID IV START; Start 02/20 at 10:00; Stop 02/21/17 at 09:59; Status DC Hydromorphone HCl (Dilaudid) 0.5 mg PRN Q10MIN PRN IV SEV PAIN, Second choice; Start 02/20/17 at 10:00; Stop 02/21/17 at 09:59; Status DC Prochlorperazine Edisylate (Compazine) 5 mg PACU PRN PRN IV NAUSEA, MRX1 Last administered on 02/20/17t 11:50; Start 02/20/17 at 10:00; Stop 02/21/17 at 09 :59; Status DC Fentanyl Citrate (Fentanyl 2ml Vial) 100 mcg STK-MED ONCE .ROUTE ; Start at 10:09; Stop 02/20/17 at 10:10; Status DC Rocuronium [place] (Zemuron) 50 mg STK-MED ONCE .ROUTE ; Start 02/20/17 at 10: 09; Stop 02/20/17 at 10:10; Status DC Desflurane (Suprane) 30 ml STK-MED ONCE IH ; Start 02/20/17 at 10:11; Stop at 10:12; Status DC Propofol 20 ml @ As Directed STK-MED ONCE IV ; Start 02/20/17 at 10:11; Stop 02/20/17 at 10:12; Status DC Dexamethasone Sodium Phosphate (Decadron) 20 mg STK-MED ONCE .ROUTE ; Start at 10:11; Stop 02/20/17 at 10:12; Status DC Lidocaine HCl (Lidocaine Pf 2% Vial) 5 ml STK-MED ONCE .ROUTE ; Start 02/20/17 at 10:11; Stop 02/20/17 at 10:12; Status DC Ondansetron HCl (Zofran) 4 mg STK-MED ONCE .ROUTE ; Start 02/20/17 at 10:11; Stop 02/20/17 at 10:12; Status DC Esmolol HCl (Brevibloc) 100 mg STK-MED ONCE IV ; Start 02/20/17 at 10:44; Stop 02/20/17 at 10:45; Status DC Neostigmine Methylsulfate (Bloxiverz) 10 mg STK-MED ONCE .ROUTE ; Start at 10:49; Stop 02/20/17 at 10:50; Status DC Glycopyrrolate (Robinul) 1 mg STK-MED ONCE .ROUTE ; Start 02/20/17 at 10:50; Stop 02/20/17 at 10:51; Status DC Ketorolac Tromethamine (Toradol For Or Only) 30 mg STK-MED ONCE INJ ; Start at 11:07; Stop 02/20/17 at 11:08; Status DC Oxycodone/ Acetaminophen (Percocet 5/325) 1 tab PRN Q4HRS PRN PO MODERATE PAIN ; Start 02/20/17 at 12:00 Oxycodone/ Acetaminophen (Percocet 5/325) 2 tab PRN Q4HRS PRN PO SEVERE PAIN Last administered on 02/21/17t 06:25; Start 02/20/17 at 12:00 Fentanyl Citrate (Fentanyl 2ml Vial) 100 mcg STK-MED ONCE .ROUTE ; Start at 11:59; Stop 02/20/17 at 12:00; Status DC Morphine Sulfate 2 mg STK-MED ONCE .ROUTE ; Start 02/20/17 at 12:20; Stop at 12:21; Status DC Morphine Sulfate 4 mg PRN Q2HR PRN IV PAIN; Start 02/20/17 at 14:45 Fentanyl Citrate (Fentanyl 2ml Vial) 75 mcg 1X ONCE IV ; Start 02/20/17 at 14: 45; Stop 02/20/17 at 14:46; Status DC Active Scripts Active Oxycodone-Acetaminophen 5-325 (Oxycodone Hcl/Acetaminophen) 1 Each Tablet 1 Tab PO PRN Q4HRS PRN Reported No Known Medications Prior To Admisstion (Info) Each 1 Each Vitals/I & O Vital Sign - Last 24 Hours 02/20/17 02/20/17 02/20/17 02/20/17 11:34 11:47 11:49 12:04 Temp 97.7 97.0 97.7 97.0 Pulse 64 55 54 Resp 18 16 16 B/P (MAP) 119/56 100/59 97/49 Pulse Ox 100 100 100 O2 Delivery Nasal Cannula Nasal Cannula Nasal Cannula Nasal Cannula O2 Flow Rate 2 2 2 2 02/20/17 02/20/17 02/20/17 02/20/17 12:19 12:45 12:50 13:00 Temp 97.0 96.6 96.6 97.0 96.6 96.6 Pulse 55 69 67 Resp 16 14 14 B/P (MAP) 99/62 115/72 (86) 115/72 (86) Pulse Ox 100 98 99 O2 Delivery Nasal Cannula Room Air Room Air Room Air O2 Flow Rate 2 02/20/17 02/20/17 02/20/17 02/20/17 13:15 13:30 13:31 13:32 Temp 96.3 97.5 96.3 97.5 Pulse 69 67 Resp 14 16 18 18 B/P (MAP) 98/54 (69) 87/51 (63) Pulse Ox 98 98 O2 Delivery Room Air Room Air Nasal Cannula Nasal Cannula O2 Flow Rate 2.0 2.0 02/20/17 02/20/17 02/20/17 02/20/17 13:32 14:00 14:30 15:30 Temp 97.9 97.9 97.9 97.9 97.9 97.9 Pulse 65 61 66 Resp 18 16 16 16 B/P (MAP) 90/44 (59) 93/47 (62) 99/53 (68) Pulse Ox 98 95 98 O2 Delivery Nasal Cannula Room Air Room Air Room Air O2 Flow Rate 2.0 02/20/17 02/20/17 02/20/17 02/20/17 16:30 18:18 19:00 23:00 Temp 97.7 98.3 98.4 97.7 98.3 98.4 Pulse 62 66 72 Resp 16 18 16 16 B/P (MAP) 99/53 (68) 89/49 (62) 86/50 (62) Pulse Ox 98 98 96 97 O2 Delivery Room Air Room Air O2 Flow Rate 2.0 02/21/17 02/21/17 02/21/17 02/21/17 00:16 03:00 06:25 07:25 Temp 98.8 98.8 Pulse 57 Resp 17 16 15 18 B/P (MAP) 98/53 (68) Pulse Ox 97 98 98 98 O2 Delivery Room Air Room Air Room Air 02/21/17 07:30 O2 Delivery Room Air MELANY SINGH MD Feb 21, 2017 10:59
[2017-02-21 11:00] VITALS: BP 98/60
== END 2017-02-21 13:10 | disposition home or self-care (01) | DRG 419 ==
LOC: 4 NORTH 15:00 → EDSEX 15:00
PROVIDERS: ADMIT Internal Medicine Hematology & Oncology; ATTEND Internal Medicine Hematology & Oncology
PROC: BF121ZZ Fluoroscopy of Gallbladder using Low Osmolar Contrast (ICD-10-PCS; 2017-02-20)
PROC: 0FT44ZZ Resection of Gallbladder, Percutaneous Endoscopic Approach (ICD-10-PCS; principal; 2017-02-20 10:30)
DX: K81.0 Acute cholecystitis (principal); Z91.018 Allergy to other foods
CPT/HCPCS: 36415; 74300; 80053; 85025; 85610; 85730; 87040; C1769; J0780; J1100; J1170; J1885; J2270; J2405; J2543; J2704; J2710; J3010; J3490; J7030; Q9967; J2001

== ENCOUNTER → 2018-12-28 | Outpatient (CLI) | payer OTHER ==
[2017-03-05 11:00] VITALS: BP 100/61
[~2018-12-28] MED LIST: DOCU-109 PO; OXYC1TAB7 PO
--- NOTE | 2018-12-28 17:20 | KCIC ---
MR of the left knee HISTORY: Left knee pain medially, getting worse since injury last August. TECHNIQUE: Routine multiplanar sequences are obtained. FINDINGS: No evidence of medial or lateral meniscal tear. Anterior and posterior cruciate ligaments are intact. Medial collateral ligament is intact. Iliotibial band unremarkable. Fibular collateral ligament, biceps femoris tendon and popliteus tendon are intact. Extensor mechanism intact. Small joint effusion. Trace Dillon's cyst. No acute articular cartilage defect. No bone destruction or acute fracture. IMPRESSION: No evidence of acute abnormality or internal derangement. Electronically signed by: Toby Winn MD (12/28/2018 5:17 PM) [facility]
== END | disposition home or self-care (01) ==
LOC: KCIC MRI 16:13
PROVIDERS: ATTEND Registered Nurse
DX: M71.22 Synovial cyst of popliteal space [Baker], left knee (principal); M25.462 Effusion, left knee
CPT/HCPCS: 73721